=== PATIENT | female | born 1945 | race Caucasian/White ===

== ENCOUNTER → 2023-03-21 13:21 | Outpatient (REF) | payer OTHER, SELFPAY | LOC: RAD 13:21 | PROVIDERS: ATTENDING PHYSICIAN Family Medicine | DX: I65.23 Occlusion and stenosis of bilateral carotid arteries (principal) | CPT/HCPCS: 93880 ==

== ENCOUNTER → 2023-03-27 15:28 | Outpatient (REF) | payer OTHER, SELFPAY | LOC: WDC 15:28 | PROVIDERS: ATTENDING PHYSICIAN Family Medicine | DX: Z12.31 Encounter for screening mammogram for malignant neoplasm of breast (principal) | CPT/HCPCS: 77063; 77067 ==

== ENCOUNTER 2023-04-18 08:57 | Outpatient (RCR) | payer OTHER, SELFPAY | END 2023-04-18 23:59 | disposition home or self-care (01) | LOC: RPT 08:57 | PROVIDERS: ATTENDING PHYSICIAN Nurse Practitioner; FAMILY PHYSICIAN Family Medicine | DX: N39.41 Urge incontinence (principal); N99.3 Prolapse of vaginal vault after hysterectomy; Z73.6 Limitation of activities due to disability; R35.0 Frequency of micturition | CPT/HCPCS: 97110; 97112; 97162; 97535 ==

== ENCOUNTER 2023-05-18 11:54 | Outpatient (RCR) | payer OTHER, SELFPAY | END 2023-05-18 23:59 | disposition home or self-care (01) | LOC: RPT 11:54 | PROVIDERS: ATTENDING PHYSICIAN Nurse Practitioner; FAMILY PHYSICIAN Family Medicine | DX: N39.41 Urge incontinence (principal); N99.3 Prolapse of vaginal vault after hysterectomy; Z73.6 Limitation of activities due to disability; R35.0 Frequency of micturition | CPT/HCPCS: 97110; 97112 ==

== ENCOUNTER → 2023-06-08 11:15 | Outpatient (REF) | payer OTHER, SELFPAY | LOC: RAD 11:15 | PROVIDERS: ATTENDING PHYSICIAN Family Medicine | DX: M81.0 Age-related osteoporosis without current pathological fracture (principal); Z78.0 Asymptomatic menopausal state | CPT/HCPCS: 77080 ==

== ENCOUNTER 2023-06-15 12:59 | Outpatient (RCR) | payer OTHER, SELFPAY | END 2023-06-15 23:59 | disposition home or self-care (01) | LOC: RPT 12:59 | PROVIDERS: ATTENDING PHYSICIAN Nurse Practitioner; FAMILY PHYSICIAN Family Medicine | DX: N39.41 Urge incontinence (principal); N99.3 Prolapse of vaginal vault after hysterectomy; Z73.6 Limitation of activities due to disability; R35.0 Frequency of micturition | CPT/HCPCS: 97110; 97112 ==

== ENCOUNTER 2023-07-19 08:54 | Outpatient (RCR) | payer OTHER, SELFPAY | END 2023-07-19 23:59 | disposition home or self-care (01) | LOC: RPT 08:54 | PROVIDERS: ATTENDING PHYSICIAN Nurse Practitioner; FAMILY PHYSICIAN Family Medicine | DX: N39.41 Urge incontinence (principal); N99.3 Prolapse of vaginal vault after hysterectomy; Z73.6 Limitation of activities due to disability; R35.0 Frequency of micturition | CPT/HCPCS: 97110; 97112; 97535 ==

== ENCOUNTER 2023-07-27 08:56 | Outpatient (RCR) | payer OTHER, SELFPAY | END 2023-07-27 10:34 | disposition home or self-care (01) | LOC: RPT 08:56 | PROVIDERS: ATTENDING PHYSICIAN Nurse Practitioner; FAMILY PHYSICIAN Family Medicine | DX: N39.41 Urge incontinence (principal); N99.3 Prolapse of vaginal vault after hysterectomy; Z73.6 Limitation of activities due to disability; R35.0 Frequency of micturition | CPT/HCPCS: 97110; 97112 ==

== ENCOUNTER 2023-08-28 06:25 | Day surgery (SDC) | payer OTHER, SELFPAY ==
[2023-08-17 09:02] LABS: Hemoglobin 13.8 g/dL (12.0-16.0); Mean Corp Hgb Conc. 34.5 g/dL (33.0-37.0); Mean Corpuscular Hgb 30.2 pg (27.0-31.0); Mean Corpuscular Volume 87.5 fL (81.0-99.0); Mean Platelet Volume 10.1 fL (7.4-10.4); Platelet Count 269 10^3/uL (130-400); Red Blood Cell Count 4.57 10^6/uL (4.20-5.40); Red Cell Dist. Width 12.1 % (11.5-14.5); White Blood Cell Count 5.4 10^3/uL (4.8-10.8)
[2023-08-17 09:34] LABS: Blood Urea Nitrogen 20 mg/dl (7-17); Calcium 9.5 mg/dl (8.4-10.2); Carbon Dioxide 27 mmol/L (22-30); Chloride 102 mmol/L (98-107); Glucose 93 mg/dl (70-99); Potassium 4.5 mmol/L (3.5-5.1); Sodium 136 mmol/L (135-145); eGFR > 60.00
[2023-08-17 09:36] VITALS: BMI 27.4
[2023-08-28] VITALS (12 sets, daily range): BP systolic 134–165; BP diastolic 63–90; BMI 27.4
[2023-08-28] MEDS: NORMOSOL-R 1000 IV ×3 (08:18→22:28)
[2023-08-28] MEDS: Pyridium 200 MG PO (08:18)
[2023-08-28 14:01] LABS: Hematocrit 40.1 % (37.0-47.0); Hemoglobin 14.4 g/dL (12.0-16.0)
--- NOTE | 2023-08-28 14:02 | OR.RPT ---
Operative Report
Operative Report
PREOPERATIVE DIAGNOSIS:
1. Vaginal vault prolapse
2. Prior vaginal colpopexy
POSTOPERATIVE DIAGNOSIS:
1. Vaginal vault prolapse
2. Prior vaginal colpopexy
PROCEDURE:
1. Robotic assisted laparoscopic sacrocolpopexy
2. Robotic assisted laparoscopic extensive lysis of adhesions
3. Cystoscopy with right ureteral stent placement (Dr. Naveen Pitno)
ASSISTANTS: REBA Turcios
EBL: 100cc
COMPLICATIONS: None
SPECIMENS: None
INDICATIONS: Patient has recurrent symptomatic pelvic organ prolapse. She had a vaginal extraperitoneal colpopexy that failed and resulted in symptomatic prolapse. Options were reviewed with the patient, who decided to proceed with surgery.� The
risks of surgery were reviewed, including the risk of bleeding, infection, damage to surrounding organs including bowel, bladder, ureter, urethra, nerves, blood vessels, mesh complications, post-operative urinary retention and urinary incontinence.
The risk of anesthesia was also reviewed.� The patient expressed understanding and informed consent was obtained.
FINDINGS: Laparoscopic findings include severe omental adhesions to the anterior abdominal wall and severe bowel adhesions in the pelvis. Cystoscopic findings include normal bladder mucosa, no cystotomy, suture, mesh, lacerations or lesions. Normal
urethra.
DESCRIPTION OF PROCEDURE:
On day of surgery, patient properly identified in preoperative waiting area and informed consent of planned procedure again reviewed.� She was then taken to the operating room.� Sequential compression devices were placed on bilateral lower
extremities and 5,000 units of subcutaneous heparin were given for DVT prophylaxis.� General anesthesia was induced without difficulty.�� Ancef 2 grams and Flagyl 500m IV was given for antibiotic prophylaxis.� The patient was placed in dorsal
lithotomy position with Mayco stirrups and prepped and draped in the usual sterile fashion.� Surgical time-out was performed to review patient and procedure.
Attention was turned to the patient�s vagina.� Green catheter was placed to gravity. The vaginal manipulator was placed.�
Attention turned to the patient�s abdomen.� The patient was confirmed to have an OG tube in place on suction for gastric decompression.� A midline 8 mm transverse midline supraumbilical incision was made with the scalpel approximately 20 cm above
the symphysis.� The Veress needle was passed through this incision while tenting up the abdominal wall.� Intraperitoneal placement was confirmed by opening insufflation pressure of 0 mmHg.� The abdomen was insufflated to a pressure of 15 mmHg with
approximately 3L CO2 gas to obtain adequate pneumoperitoneum.� A 8 mm robotic trocar was advanced through this incision and abdominal entry confirmed.� No injuries noted.� Next, the remaining port sites were marked, injected superficially with local
anesthetic, and skin incised with the scalpel.� These sites included two 8 mm robotic ports on the patient's left and one 8mm robotic and one 8 mm accessory port on the patient's right.� All ports were placed under direct visualization without
difficulty.� The patient was placed in [place] position and abdomen and pelvis inspected and noted to be free of significant adhesive disease.� The robot was docked using the right side-docking technique.� The robotic arms were attached to the
ports and instruments placed without difficulty.�
The lysis of adhesions was completed: the omentum was dissected off of the anterior abdominal wall. No injuries and hemostasis was maintained. The large bowel was noted to be adhesed to the vaginal and bilateral pelvic sidewall. The colon was
dissected offf the vagina with blunt and sharp dissection. Next the bowel dissected free from the right pelvic sidewall. The colon was densely adhesed to the right ureter so Urology was called into the room to place stent. Please see Dr. Pinto'
operative report. After the stent was place adequate visualization of the ureter allowed for dissection of the bowel free from the ureter.
The robotic assisted laparoscopic abdominal sacrocolpopexy was performed as follows:� The bladder was dissected anteriorly off the vagina to allow for mesh placement.� Another EEA sizer was placed gently into the rectum to help distinguish the
rectovaginal perineum reflection.� The posterior peritoneum was entered sharply and the rectum dissected posteriorly off the vagina.� The posterior peritoneum was continued to be opened through the cul-de-sac.� Next the sacrum was exposed after
retracting bowel gently away.� The peritoneum overlying the sacral was tented up and entered sharply.� The presacral space area was opened op and dissection carried down to expose and clear off the anterior longitudinal ligament at the level of the
sacrum.� This peritoneum incision was carried inferiorly to join the peritoneal incision of the posterior cul-de-sac.� Hemostasis was noted.��� The polypropylene Y mesh was introduced through the accessory port and positioned over the cervix.� The
anterior arm of the Y mesh was sutured to the anterior cervix and vagina with approximately 9 #2-0 Gortex sutures.� The posterior arm of the Y mesh was sutured to the posterior cervix and vagina with 6 #2-0 Gortex sutures.� The tail of the Y mesh
was attached to the anterior longitudinal ligament at the level of the sacrum with 3 #2-0 Gortex sutures.� The vagina was noted to be elevated but not under tension.� Hemostasis was noted.� The excess mesh was trimmed and removed.� The peritoneum
was reapproximated to cover the mesh at the sacrum.� The pelvis was reexamined and hemostasis was noted throughout.�
The robot was undocked.�Skin was closed with 4-0 Biosyn for the subcuticular layer.� All abdominal incisions were then closed with skin glue.�
Vaginal packing was placed.
Anesthesia was reversed without difficulty.� The patient tolerated the procedure well, was awakened and sent to the PACU in stable condition. All counts were correct x 2. I, Dr. Barboza was scrubbed and present throughout the procedure
[2023-08-28 14:21] LABS: Blood Urea Nitrogen 20 mg/dl (7-17); Calcium 8.4 mg/dl (8.4-10.2); Carbon Dioxide 21 mmol/L (22-30); Chloride 103 mmol/L (98-107); Estimated Creatinine Clearance 63 ml/min; Glucose 136 mg/dl (70-99); Potassium 4.5 mmol/L (3.5-5.1); Sodium 135 mmol/L (135-145); eGFR > 60.00
--- NOTE | 2023-08-28 16:24 | PTCARENOTE ---
Report received from [facility], pt received into room 225 with FOB @ bedside. Pt. AAOx3, O2 infusing @ 4 L, lungs CTA, Abdomen soft with 5 incisional sites with dermabond, no drainage. HRR, vss, Green cath patent with bright yellow urine with a y'd in
right stent intact. + bowel sounds and vaginal packing intact no bleeding. IV fluids NSS @ 125 via pump infusing without difficult. Pt c/o burning in eyes, cold compress giving for eye relief. Pt tolerating water and ice chips and will progress
diet as tolerated. Will continue to monitor patient.
[2023-08-28] MEDS: LOVENOX 40 MG SC (17:59)
[2023-08-28] MEDS: MYLICON 80 MG PO (17:59)
[2023-08-28] MEDS: TYLENOL 650 MG PO (18:00)
[2023-08-28] MEDS: COLACE 100 MG PO (20:31)
[2023-08-28] MEDS: ROXICODONE 5 MG PO (22:18)
[2023-08-29 04:40] VITALS: BP 132/70
[2023-08-29] MEDS: ROXICODONE 2.5 MG PO (04:51)
--- NOTE | 2023-08-29 05:05 | PTCARENOTE ---
Vaginal packing removed, per MD order. Minimal serosanguineous fluid observed on packing. Packing intact and discarded.
[2023-08-29 05:21] LABS: Hematocrit 37.5 % (37.0-47.0); Hemoglobin 13.4 g/dL (12.0-16.0); Mean Corp Hgb Conc. 35.7 g/dL (33.0-37.0); Mean Corpuscular Hgb 30.5 pg (27.0-31.0); Mean Corpuscular Volume 85.2 fL (81.0-99.0); Mean Platelet Volume 10.3 fL (7.4-10.4); Platelet Count 256 10^3/uL (130-400); Red Cell Dist. Width 12.2 % (11.5-14.5); White Blood Cell Count 11.8 10^3/uL (4.8-10.8)
[2023-08-29 05:43] LABS: Blood Urea Nitrogen 16 mg/dl (7-17); Carbon Dioxide 25 mmol/L (22-30); Chloride 104 mmol/L (98-107); Estimated Creatinine Clearance 55 ml/min; Potassium 4.2 mmol/L (3.5-5.1); Sodium 137 mmol/L (135-145)
[2023-08-29] MEDS: NORMOSOL-R 1000 IV (05:48)
--- NOTE | 2023-08-29 07:48 | W.PN.GYN ---
Today's Communication / Plan
-
1. Voiding trial: pending
2. D/c home today
Physician Note
-
Assessment and Plan:
78 yo woman POD 1 s/p robotic sacrocolpopexy, extensive DIANE, right ureteral stent placement and cystoscopy: doing well postoperatively and meeting postop milestons.
1. Postoperative Care
-Hep lock IV
-Regular diet
-DVT ppx: Lovenox, scds, ambulation
-CBC: WNL
-UOP: adequate overnight
-BMP: WNL
-Mercedes catheter and ureteral stent removed on rounds this morning
-Vaginal packing: removed this morning
-voiding Trial: pending
2. Dispo
-d/c home today
Subjective:
no acute pain. +passing flatus. tolerating regular diet. has not ambulated. no significant vaginal bleeding
Objective:
Intake and Output
08/27/23 08/28/23 08/29/23 08/30/23
06:59 06:59 06:59 06:59
Intake Total 3625 / 3625
Output Total 4300 / 4300
Balance -675 / -675
Intake:
Oral fluids 1550 / 1550
Amount of oral supplement(s) 0 / 0
consumed
IV fluids (Total) 2074
Normosol 200 / 200
IV piggybacks 0 / 0
TPN/PPN 0 / 0
Lipids 0 / 0
Blood products 0 / 0
Output:
Urine, Mercedes 4300 / 4300
Urine, Voided 0 / 0
Vital Signs
Temp Pulse Resp BP Pulse Ox
98.1 F 77 18 132/70 94
08/29/23 04:40 08/29/23 04:40 08/29/23 04:40 08/29/23 04:40 08/29/23 04:40
Lab Results
08/29/23 04:58
08/29/23 04:58
Exam:
-Abdomen: soft, nontender, non-distended
-: no bleeding, peripad in place, mercedes removed
-Incisions: clean, dry, intact
[2023-08-29] MEDS: COLACE 100 MG PO (08:09)
[2023-08-29 08:38] VITALS: BP 140/75
--- NOTE | 2023-08-29 09:55 | CM ---
CM attempted to seen patient this am. Patient unavailable. CM will attempt to return to assess any discharge needs.
--- NOTE | 2023-08-29 10:11 | PTCARENOTE ---
Bladder scan completed and no residual urine was noted after patient urinated in bathroom, MD aware of findings and pt cleared for discharge to home. All discharge instructions given and presently awaiting a call from patient for transport w/c
team.
== END 2023-08-29 11:03 | disposition home or self-care (01) ==
LOC: SDS 06:25
PROVIDERS: ATTENDING PHYSICIAN Obstetrics & Gynecology; FAMILY PHYSICIAN Family Medicine
DX: N81.11 Cystocele, midline (principal); K66.0 Peritoneal adhesions (postprocedural) (postinfection); Z90.5 Acquired absence of kidney
CPT/HCPCS: 57425; 49329; 52332; 36415; 80048; 80051; 82565; 84520; 85014; 85018; 85027; 86850; 86900; 86901; 93005; A4300; C1763

== ENCOUNTER → 2024-04-24 12:52 | Outpatient (REF) | payer OTHER, SELFPAY | LOC: WDC 12:52 | PROVIDERS: ATTENDING PHYSICIAN Family Medicine | DX: Z12.31 Encounter for screening mammogram for malignant neoplasm of breast (principal) | CPT/HCPCS: 77063; 77067 ==

== ENCOUNTER → 2024-07-26 07:36 | Outpatient (REF) | payer OTHER, SELFPAY ==
[2024-07-26 08:09] LABS: % Basophils 1.1 % (0-2); % Eosinophils 2.8 % (0-6); % Immature Granulocytes 0.2 % (0-0.5); % Lymphocytes 33.3 % (20.5-51.1); % Monocytes 9.8 % (1.7-9.3); % Neutrophils 52.8 % (42.2-75.2); Absolute Basophils 0.1 10^3/uL (0-0.2); Absolute Eosinophils 0.2 10^3/uL (0-0.7); Absolute Lymphocytes 1.8 10^3/uL (1.2-3.4); Absolute Monocytes 0.5 10^3/uL (0.1-0.6); Absolute Neutrophils 2.9 10^3/uL (1.4-6.5); Hematocrit 38.9 % (37.0-47.0); Hemoglobin 13.3 g/dL (12.0-16.0); Mean Corp Hgb Conc. 34.2 g/dL (33.0-37.0); Mean Corpuscular Volume 87.8 fL (81.0-99.0); Mean Platelet Volume 9.9 fL (7.4-10.4); Nucleated Red Blood Cells % 0 %; Platelet Count 256 10^3/uL (130-400); Red Blood Cell Count 4.43 10^6/uL (4.20-5.40); Red Cell Dist. Width 12.2 % (11.5-14.5); White Blood Cell Count 5.4 10^3/uL (4.8-10.8)
[2024-07-26 08:48] LABS: Blood Urea Nitrogen 21 mg/dl (7-17); Calcium 9.1 mg/dl (8.4-10.2); Carbon Dioxide 24 mmol/L (22-30); Chloride 108 mmol/L (98-107); Glucose 103 mg/dl (70-99); Potassium 4.4 mmol/L (3.5-5.1); Sodium 138 mmol/L (135-145); eGFR > 60.00
== END ==
LOC: RCS 07:36
PROVIDERS: ATTENDING PHYSICIAN Orthopaedic Surgery; FAMILY PHYSICIAN Family Medicine
DX: Z01.818 Encounter for other preprocedural examination (principal)
CPT/HCPCS: 80048; 85025; 93005